=== PATIENT | female | born 1955 | race Two or more races ===

== ENCOUNTER 2020-12-16 09:33 | Inpatient (IN) | payer SELFPAY ==
[~2020-12-16] VITALS: Ht 160 cm; Wt 83.9 kg
--- NOTE | 2020-12-16 09:35 | NUR ---
tino, from home, c/o sob 70% on their pulse ox, 93% on the paramedics tested +covid 19 last week. On room air, breathing evenly and unlabored. Connected to the monitor and pulse ox. Kept comfortable, will continue to monitor accordingly.
--- NOTE | 2020-12-16 09:41 | NUR ---
SEEN AND EXAMINED BY
--- NOTE | 2020-12-16 10:07 | NUR ---
TOOLING INSPECTOR AT BEDSIDE FOR XRAY.
--- NOTE | 2020-12-16 10:45 | NUR ---
IV LINE ESTABLISHED BLOOD DRAWN AND SENT TO LAB.
[2020-12-16] MEDS ORDERED: DEXAMETHASONE SOD PHOSPHATE 10 MG/ML VIAL ONE (10:53)
[2020-12-16] MEDS ORDERED: CEFTRIAXONE 1GM BAG (ER ONLY) 50 ML IV ONE (10:53)
[2020-12-16] MEDS ORDERED: DEXAMETHASONE SOD PHOSPHATE 4 MG/ML VIAL IV ONE (11:00)
[2020-12-16] MEDS ORDERED: DEXAMETHASONE SOD PHOSPHATE 4 MG in IV D5W 50 ML IV ONE (11:00)
[2020-12-16] MEDS ORDERED: CEFTRIAXONE 1 G in IV D5W 50 ML IV ONE (11:00)
[2020-12-16 11:10] LABS: BASOPHILS % (AUTO) 0.5 % (0.0-2.0); EOSINOPHILS % (AUTO) 0.1 % (0.0-6.0); HEMATOCRIT 40 % (33-45); HEMOGLOBIN 13.3 g/dL (11.5-14.8); LYMPHOCYTES # (AUTO) 0.8 /CMM (0.8-4.8); LYMPHOCYTES % (AUTO) 16.3 % (20.0-44.0); MEAN CORPUSCULAR HGB CONC 34 g/dl (31.0-36.0); MEAN CORPUSCULAR VOLUME 95 fL (82-100); MONOCYTES # (AUTO) 0.4 /CMM (0.1-1.30); MONOCYTES % (AUTO) 7.5 % (2.0-12.0); NEUTROPHILS # (AUTO) 3.5 /CMM (1.8-8.9); NEUTROPHILS % (AUTO) 75.6 % (43.0-81.0); PLATELET COUNT (AUTO) 118 /CMM (150-450); RED BLOOD CELL COUNT(AUTO) 4.14 MIL/uL (4.0-5.2); WHITE BLOOD COUNT (AUTO) 4.7 K/uL (4.3-11.0)
[2020-12-16 11:22] LABS: D-DIMER 0.89 mg/L(FEU (0.17-0.50)
[2020-12-16 11:33] LABS: ALANINE AMINOTRANSFERASE 18 U/L (12-78); ALBUMIN 3.2 g/dL (3.4-5.0); ALKALINE PHOSPHATASE 39 U/L (46-116); ASPARTATE AMINOTRANSFERASE 33 U/L (15-37); B-TYPE NATRIURETIC PEPTIDE 240 PG/ML (0-125); BILIRUBIN,TOTAL 0.3 mg/dL (0.2-1.0); CALCIUM, SERUM 8.9 mg/dL (8.5-10.1); CARBON DIOXIDE 29 mmol/L (21-32); CHLORIDE 103 mmol/L (98-107); CREATININE 0.8 mg/dL (0.6-1.3); GLUCOSE 115 mg/dL (74-106); POTASSIUM 3.8 mmol/L (3.5-5.1); SODIUM SERUM 140 mmol/L (136-145); TOTAL PROTEIN, SERUM 7.1 g/dL (6.4-8.2); UREA NITROGEN, BLOOD 13 mg/dL (7-18)
--- NOTE | 2020-12-16 11:44 | NUR ---
covid 19 swab collected and sent to lab
--- NOTE | 2020-12-16 12:17 | NUR ---
Lab Called for Covid test result- POSITIVE
--- NOTE | 2020-12-16 12:32 | NUR ---
room given 113
--- NOTE | 2020-12-16 12:33 | NUR ---
CALLED FOR REPORT RN NOT AVAILABLE.
--- NOTE | 2020-12-16 12:46 | NUR ---
RT NOTE: ATTEMPTED TO DRAW ABG TWICE BUT WAS NOT SUCCESSFUL. NOTIFIED THAT ABG SAMPLE WAS NOT OBTAINED. WILL HOLD OFF FOR NOW PER .
--- NOTE | 2020-12-16 13:05 | NUR ---
REPORT GIVEN TO RN EMILIO FOR [facility].
[2020-12-16 14:30] VITALS: BP 91/47
--- NOTE | 2020-12-16 15:00 | NUR ---
RECEIVED PATIENT FROM ED IN A RDINGLE AND ON ROOM AIR SATURATING 95%. ASSESSMENTS DONE, RIGHT AC 18 G IV SITE SALINE LOCK NOTED AND FLUSHED WELL. BODY ASSESSMENT DONE. PATIENT DID NOT C/O ANY RESPIRATORY DISTRESS. WILL CONTINUE TO MONITOR. CALL LIGHT WITH IN REACH.
[2020-12-16 15:39] LABS: FERRITIN 579 ng/mL (8-388)
[2020-12-16 16:00] VITALS: BP 123/57
[2020-12-16] MEDS ORDERED: ACETAMINOPHEN 325 MG TABLET PO PRN (17:00)
[2020-12-16] MEDS ORDERED: DEXTROSE 50%-WATER 50 ML DISP.SYRIN IV PRN (17:00)
[2020-12-16] MEDS ORDERED: ZOLPIDEM TARTRATE 5 MG TABLET PO PRN (17:00)
[2020-12-16] MEDS ORDERED: Z GUARD REMEDY 2 OZ OINT TP PRN (17:00)
[2020-12-16] MEDS ORDERED: HYDROCODONE/APAP 5/325MG TABLET PO PRN (17:00)
[2020-12-16] MEDS ORDERED: ONDANSETRON HCL/PF 4 MG/2 ML VIAL IVP PRN (17:00)
[2020-12-16] MEDS ORDERED: MAGNESIUM HYDROXIDE 30 ML UDC PO PRN (17:00)
[2020-12-16] MEDS: ENOXAPARIN SODIUM 40 MG/0.4 ML DISP.SYRIN SQ SCH (17:57)
[2020-12-16] MEDS: BLOOD SUGAR DIAGNOSTIC 1 EACH STRIP IN SCH ×2 (18:02→22:04)
[2020-12-16] MEDS: INSULIN REGULAR, HUMAN 100 UNIT/ML 3 ML VIAL SQ PRN ×2 (18:03→22:05)
--- NOTE | 2020-12-16 19:20 | NUR ---
RECEIVED PT ON BED AWAKE A/O X4 ABLE TO VERBALIZED NEEDS ON ROOM AIR TOLERATING WELL SPO2 94% NO PAIN COMPLAINT TELE MONITOR READS SINUS RHYTHM 80'S BED ON LOWEST POSITION AND LOCKED SIDE RAILS UP X 2 CALL LIGHT WITHIN REACH WILL CONT TO MONITOR
--- NOTE | 2020-12-16 19:20 | NUR ---
RN CLOSING NOTES PATIENT CURRENTLY IN BED ON ROOM AIR SATURATING 94%. NO C/O PAIN OR DISCOMFORT. NO S/S OF RESPIRATORY DISTRESS. EDUCATED REGARDING SAFETY AND FALL PRECAUTIONS. RIGHT AC IV SITE PATENT AND FLUSHED WELL. ENDORSED TO NEXT SHIFT FOR [facility].
[2020-12-16 20:00] VITALS: BP 93/63
[2020-12-17] VITALS: BP 89/58
[2020-12-17 04:00] VITALS: BP 113/62
--- NOTE | 2020-12-17 06:53 | NUR ---
PT ON BED SLEEPING EASY TO WAKE UP NO SIGN AND SYMPTOMS OF ANY DISTRESS STILL ON ROOM AIR SPO2 >92% NO PAIN COMPLAINED NO SIGNIFICANT CHANGES ON CONDITION NOTED ALL NEEDS ATTENDED, TELE MONITOR READS SINUS RHYTHM 80S BED ON LOWEST POSITION AND LOCKED SIDE RAILS UP X2 CALL LIGHT WITHIN REACH WILL ENDORSED TO AM SHIFT NURSE
[2020-12-17 07:06] LABS: BASOPHILS % (AUTO) 0.1 % (0.0-2.0); HEMATOCRIT 39 % (33-45); HEMOGLOBIN 13.1 g/dL (11.5-14.8); LYMPHOCYTES # (AUTO) 0.9 /CMM (0.8-4.8); LYMPHOCYTES % (AUTO) 22.4 % (20.0-44.0); MEAN CORPUSCULAR HGB CONC 34 g/dl (31.0-36.0); MEAN CORPUSCULAR VOLUME 95 fL (82-100); MONOCYTES # (AUTO) 0.5 /CMM (0.1-1.30); MONOCYTES % (AUTO) 11.5 % (2.0-12.0); NEUTROPHILS # (AUTO) 2.6 /CMM (1.8-8.9); PLATELET COUNT (AUTO) 146 /CMM (150-450); RED BLOOD CELL COUNT(AUTO) 4.08 MIL/uL (4.0-5.2)
--- NOTE | 2020-12-17 07:30 | NUR ---
PEDIATRIC PHYSICIAN ASSISTANT NOTE RECEIVED PT ON BED AWAKE A/O X4 ABLE TO VERBALIZED NEEDS ON ROOM AIR TOLERATING WELL SPO2 94% NO PAIN COMPLAINT TELE MONITOR READS SINUS RHYTHM 80'S BED ON LOWEST POSITION AND LOCKED SIDE RAILS UP X 2 CALL LIGHT WITHIN REACH WILL CONT TO MONITOR AND PROVIDE TREATMENT
[2020-12-17] MEDS: BLOOD SUGAR DIAGNOSTIC 1 EACH STRIP IN SCH ×4 (07:43→21:30)
[2020-12-17 08:00] VITALS: BP 120/67
[2020-12-17 08:02] LABS: CALCIUM, SERUM 8.8 mg/dL (8.5-10.1); CREATININE 0.7 mg/dL (0.6-1.3); MAGNESIUM 2.5 mg/dL (1.8-2.4); PHOSPHORUS 3.8 mg/dL (2.5-4.9); POTASSIUM 3.8 mmol/L (3.5-5.1)
[2020-12-17 08:33] LABS: C-REACTIVE PROTEIN 4.6 mg/dL (0.0-0.9)
[2020-12-17] MEDS: DEXAMETHASONE SOD PHOSPHATE 10 MG/ML VIAL IV SCH (08:55)
[2020-12-17 12:00] VITALS: BP 120/62
[2020-12-17 16:00] VITALS: BP 113/66
[2020-12-17] MEDS: ENOXAPARIN SODIUM 40 MG/0.4 ML DISP.SYRIN SQ SCH (17:28)
--- NOTE | 2020-12-17 19:30 | NUR ---
RN NOTE RECEIVED PT IN BED, AOX4. NO DISTRESS NOTED. ON TELE MONITORING SHOWS SR WITH HR OF 66. DENIES ANY PAIN OR SOB AT THIS TIME, TOLERATING ROOM AIR WITH O2 SAT OF 96 %. IV ON RAC PATENT AND INTACT, FLUSHES WELL. ALL SAFETY MEASURES IMPLEMENTED PER PROTOCOL CALL LIGHT WITHIN REACH. BED LOCKED IN LOWEST POSITION. SIDE RAILS UP.
[2020-12-17 20:00] VITALS: BP 98/50
[2020-12-18] VITALS: BP 105/47
[2020-12-18 04:00] VITALS: BP 95/60
--- NOTE | 2020-12-18 06:49 | NUR ---
RN NOTES PT REMAIN STABLE. NO RESP DISTRESS NOTED. DENIES ANY SOB, O2 SAT AT 98-100% ON RA. PT ABLE TO MAKE NEEDS KNOWN, AMBULATES TO RESTROOM. NO FALL NOTED. SR ON TELE MONITOR. CALL LIGHT WITHIN REACH AT ALL TIMES. ALL SAFETY MEASURES MAINTAINED.
[2020-12-18] MEDS: BLOOD SUGAR DIAGNOSTIC 1 EACH STRIP IN SCH (07:02)
[2020-12-18] MEDS: INSULIN REGULAR, HUMAN 100 UNIT/ML 3 ML VIAL SQ PRN (07:03)
--- NOTE | 2020-12-18 07:35 | NUR ---
RN OPENING NOTES PATIENT RECEIVED IN BED IN STABLE CONDITION. NO C/O PAIN OR DISCOMFORT. PATIENT TEACHING DONE REGARDING SAFETY AND FALL PRECAUTIONS. ON ROOM AIR 98% . WILL CONTINUE TO MONITOR. CALL LIGHT WITH IN REACH
[2020-12-18 08:00] VITALS: BP 102/64
[2020-12-18] MEDS: DEXAMETHASONE SOD PHOSPHATE 10 MG/ML VIAL IV SCH (08:06)
[2020-12-18] MEDS ORDERED: DEXA4TAB PO (10:30)
[2020-12-18] MEDS ORDERED: ASPI-1169 PO (10:30)
--- NOTE | 2020-12-18 11:52 | NUR ---
Patient was discharged to home at apprx 11:45 am with a family friend. Patient teaching done regarding covid 19 precautions and mask and social distancing. Instructed to follow up with PCP. Patient given prescription for pharmacy of choice. Iv SITE TO LEFT ARM discontinued with no s/s of bleeding. No c/o pain or discomfort. No c/o sob. No s/s of respiratory distress. Patient left the facility in stable condition. All instructions printed and provided.
== END 2020-12-18 11:38 | disposition home or self-care (01) | DRG 177 ==
LOC: ER 09:35 → TELE1 12:57
PROVIDERS: ADMIT Nurse Practitioner Acute Care; ATTEND Nurse Practitioner Acute Care
DX: U07.1 COVID-19 (principal); J12.82 Pneumonia due to coronavirus disease 2019; E44.1 Mild protein-calorie malnutrition; E88.09 Other disorders of plasma-protein metabolism, not elsewhere classified; M54.31 Sciatica, right side; N20.0 Calculus of kidney; Z68.32 Body mass index [BMI] 32.0-32.9, adult; R09.02 Hypoxemia
CPT/HCPCS: 36415; 71045-TC; 80048-TC; 80053-TC; 80061-TC; 82728-TC; 82962-TC; 83605-TC; 83735-TC; 83880; 84100-TC; 84484-TC; 85025-TC; 85378-TC; 85730-TC; 86140-TC; 87040-TC; 87081-TC; C9803; G0378; J0696; J1100; J1650; J1815; J7060; U0003